=== PATIENT | male | born 1965 | race Caucasian/White ===

== ENCOUNTER 2024-04-13 19:34 | Emergency (ER) | payer SELFPAY ==
[2024-04-13] MEDS: predniSONE 10 MG Tab PO ONE (19:50)
[2024-04-13] MEDS: Ketorolac 30 MG/ML SDV IM ONE (19:50)
== END 2024-04-13 20:32 | disposition home or self-care (01) ==
LOC: MW.ED 19:34
DX: M25.511 Pain in right shoulder (principal); M25.532 Pain in left wrist; M06.9 Rheumatoid arthritis, unspecified; M70.90 Unspecified soft tissue disorder related to use, overuse and pressure of unspecified site; Z75.8 Other problems related to medical facilities and other health care
CPT/HCPCS: 29125; 96372; 99283; A9270; J1885